=== PATIENT | female | born 1985 | race African-American/Black ===

== ENCOUNTER 2017-02-08 02:50 | Emergency (ER) | payer SELFPAY ==
[~2017-02-08] VITALS: Ht 162.6 cm; Wt 62.6 kg
--- NOTE | 2017-02-08 03:07 | Emergency Room Report ---
History of Present Illness General Chief Complaint: Lower Back Pain or Injury Source: Patient Present Illness HPI 31-year-old female walks in with 2-3 days of right lower back pain radiating to front Associated with polyuria Nice fever or chills, nausea, vomiting, abdominal pain no History of previous UTI Allergies: Coded Allergies: PENICILLINS (Verified Allergy, Unknown, 02/08/17) Patient History Past Medical History: none Past Surgical History: none Pertinent Family History: none Social History: Denies: smoking, alcohol use, drug use Last Menstrual Period: 01/26/17 Now: No Immunizations: UTD Reviewed Nursing Documentation: PMH: Agreed, PSxH: Agreed Nursing Documentation-PMH Hx Asthma: Yes Review of Systems All Other Systems: negative except mentioned in HPI Physical Exam Vital Signs Date Time Temp Pulse Resp B/P (MAP) Pulse Ox O2 Delivery O2 Flow Rate FiO2 02/08/17 02:56 102.2 96 16 117/85 99 Room Air Sp02 EP Interpretation: reviewed, normal General Appearance: normal inspection, well appearing, no apparent distress, alert, GCS 15, non-toxic Head: normocephalic, atraumatic Eyes: bilateral eye PERRL, bilateral eye EOMI ENT: normal ENT inspection, hearing grossly normal, normal voice Neck: normal inspection, full range of motion, supple, no bony tend Respiratory: normal inspection, lungs clear, normal breath sounds, no respiratory distress, no retraction, no wheezing Cardiovascular #1: regular rate, rhythm, no edema Gastrointestinal: normal inspection, normal bowel sounds, non tender, soft, no guarding, no hernia Genitourinary: no CVA tenderness Musculoskeletal: normal inspection, back normal, normal range of motion, Judith' s Sign negative Neurologic: normal inspection, alert, oriented x3, responsive, object oriented developer III-XII nml as tested, speech normal Psychiatric: normal inspection, judgement/insight normal, mood/affect normal Skin: normal inspection, normal color, no rash Medical Decision Making Diagnostic Impression: Primary Impression: Dysuria Additional Impressions: Fever Qualified Codes: R50.9 - Fever, unspecified Pyelonephritis ER Course U. a grossly infected, positive nitrites Given fever and right flank pain, likely acute pyelonephritis Tolerating by mouth Improved symptoms after IM Toradol gave initial dose of double strength Bactrim in ER ER course: Patient has remained stable during ED stay. Patient is to be discharged to home. Prescriptions given are bactrim DS for 1 week Patient is instructed to follow up with their primary care doctor within 5 days. Strict return precautions discussed with patient such as fever, chills, worsening/severe pain, nausea, vomiting, which may indicate severe illness. Patient verbalizes understanding and agrees with plan. Please note that this Emergency Department Report was dictated using [employer] care supervisor technology software, occasionally this can lead to erroneous entry secondary to interpretation by the dictation equipment Last Vital Signs Date Time Temp Pulse Resp B/P (MAP) Pulse Ox O2 Delivery O2 Flow Rate FiO2 02/08/17 02:56 102.2 96 16 117/85 99 Room Air Status: improved Disposition: HOME, SELF-CARE Scripts Trimethoprim/Sulfamethoxazole 160/800* (BACTRIM DS TABLET*) 1 Each Tablet 1 TAB ORAL Q12H, #13 TAB 0 Refills Prov: SANTOSH LAINEZ M.D. 02/08/17 SANTOSH LAINEZ M.D. Feb 08, 2017 03:07
[2017-02-08] MEDS ORDERED: Ketorolac 60mg Inj IM ONE (03:15)
[2017-02-08 03:27] LABS: KETONES,URINE NEGATIVE (NEGATIVE); PH,URINE 7 (4.5-8.0); UROBILINOGEN,URINE NORMAL MG/DL (0.0-1.0)
[2017-02-08 03:37] LABS: APPEARANCE,URINE CLOUDY
[2017-02-08 03:38] LABS: LEUKOCYTE ESTERASE ,URINE 3+ (NEGATIVE); NITRITE,URINE POSITIVE (NEGATIVE); PROTEIN,URINE 3+ (NEGATIVE)
[2017-02-08 03:39] LABS: BACTERIA,URINE MANY /HPF; SQUAMOUS EPITHELIAL CELL,UR FEW /LPF (NONE/OCC); WBC,URINE TNTC /HPF (0 - 2)
[2017-02-08] MEDS ORDERED: BACTRIM DS TAB1 EAC1 ORAL (03:55)
[2017-02-08] MEDS ORDERED: Bactrim DS (160mg/800mg) tab ORAL ONE (04:00)
[2017-02-08 04:04] VITALS: BP 117/85
== END 2017-02-08 04:04 | disposition home or self-care (01) ==
LOC: EMR 03:05
DX: N12 Tubulo-interstitial nephritis, not specified as acute or chronic (principal); J45.909 Unspecified asthma, uncomplicated; Z88.0 Allergy status to penicillin
CPT/HCPCS: 81003; 81025; 87086; 87181; 96372; 99283